=== PATIENT | male | born 1965 | race Caucasian/White ===

== ENCOUNTER 2022-03-10 05:15 | Inpatient (IN) | payer OTHER ==
[2022-03-08 11:31] LABS: BASOPHILS % (AUTO) 0.5 % (0.0-2.0); EOSINOPHILS # (AUTO) 0.1 K/uL (0.0-0.4); EOSINOPHILS % (AUTO) 0.9 % (0.0-4.0); HEMATOCRIT 43.4 % (36-54); LYMPHOCYTES # (AUTO) 2.5 K/uL (1.0-5.5); LYMPHOCYTES % (AUTO) 24.3 % (20.5-51.5); MEAN CORPUSCULAR HEMOGLOBIN 28 pg (27-31); MEAN CORPUSCULAR HGB CONC 35 % (32-36); MEAN CORPUSCULAR VOLUME 82 fL (79.0-98.0); MONOCYTES # (AUTO) 0.8 K/uL (0.0-1.0); MONOCYTES % (AUTO) 7.7 % (1.7-9.3); NEUTROPHILS # (AUTO) 6.9 K/uL (1.8-7.7); NEUTROPHILS % (AUTO) 66.6 % (40.0-70.0); PLATELET COUNT (AUTO) 271 K/uL (130-430); RED BLOOD CELL COUNT(AUTO) 5.31 MIL/uL (4.2-6.2); RED CELL DISTRIBUTION WIDTH 13.1 % (9.0-15.0); WHITE BLOOD COUNT (AUTO) 10.4 K/uL (4.8-10.8)
[2022-03-08 11:42] LABS: BILIRUBIN,URINE NEGATIVE (NEGATIVE); BLOOD, URINE NEGATIVE (NEGATIVE); CLARITY/URINE CLEAR (CLEAR); COLOR,URINE YELLOW (YELLOW); GLUCOSE,URINE NEGATIVE (NEGATIVE); KETONES,URINE NEGATIVE (NEGATIVE); LEUKOCYTE ESTERASE ,URINE NEGATIVE (NEGATIVE); NITRITE, URINE NEGATIVE (NEGATIVE); PROTEIN URINE NEGATIVE (NEGATIVE); UROBILINOGEN,URINE 0.2 (0.2-1.0)
[2022-03-08 12:13] LABS: PROTHROMBIN TIME 9.9 SECS (9.5-12.5)
[2022-03-08 12:31] LABS: CALCIUM 9.1 mg/dL (8.4-11.0); CREATININE 0.97 mg/dL (0.55-1.30)
[~2022-03-10] VITALS: Ht 188 cm; Wt 108.4 kg
[2022-03-10] VITALS (7 sets, daily range): BP systolic 111–130
[2022-03-10] MEDS ORDERED: CEFAZOLIN SOD 2 GM in D5W 50 ML IV ONE (07:15)
[2022-03-10] MEDS ORDERED: BUPIVACAINE LIPOSOME/PF 266 MG/20 ML VIAL INFIL ONE (07:22)
[2022-03-10] MEDS ORDERED: LISI20TA30 PO (07:44)
[2022-03-10] MEDS ORDERED: ACETAMINOPHEN I.V. 1000 MG 100 ML IV ONE (08:07)
[2022-03-10] MEDS ORDERED: MEPERIDINE HCL/PF 25 MG/ML DISP.SYRIN IVP PRN (08:45)
[2022-03-10] MEDS ORDERED: NALOXONE HCL 0.4 MG/ML AMP (NARCAN) IVP PRN ×4 (08:45→11:00)
[2022-03-10] MEDS ORDERED: DIPHENHYDRAMINE INJ 50 MG/ML VIAL IVP PRN (08:45)
[2022-03-10] MEDS ORDERED: ONDANSETRON HCL 4 MG/2 ML VIAL IVP PRN ×2 (08:45→11:45)
[2022-03-10] MEDS ORDERED: LR 1,000 ML IV SCH (08:45)
[2022-03-10] MEDS ORDERED: hydrALAZINE HCL 20 MG/ML VIAL IVP PRN (08:45)
[2022-03-10] MEDS ORDERED: HYDROmorphone 1 MG/ML INJ. CARTRIDGE IVP PRN ×5 (08:45→11:00)
[2022-03-10] MEDS ORDERED: METOCLOPRAMIDE HCL 10 MG/2 ML VIAL IVP PRN ×2 (08:45→11:00)
[2022-03-10] MEDS ORDERED: LABETALOL 100 MG/ 20ML VIAL IVP PRN (08:45)
[2022-03-10] MEDS ORDERED: MIDAZOLAM HCL 2 MG/2 ML VIAL (VERSED) IVP PRN (08:45)
[2022-03-10] MEDS ORDERED: DIPHENHYDRAMINE HCL 25 MG CAPSULE PO PRN (11:00)
[2022-03-10] MEDS ORDERED: traMADol HCL HCL 50 MG TABLET (ULTRAM) PO PRN (11:00)
[2022-03-10] MEDS ORDERED: LORATADINE 10 MG TABLET PO PRN (11:00)
[2022-03-10] MEDS ORDERED: oxyCODONE HCL 5 MG TABLET PO PRN ×2 (11:00)
[2022-03-10] MEDS ORDERED: BISACODYL 10 MG/SUPPOSITORY RC PRN (11:00)
[2022-03-10] MEDS ORDERED: LACTULOSE 20 GM/30 ML UDC PO PRN (11:00)
[2022-03-10] MEDS ORDERED: MORPHINE SULFATE 10MG/10ML PF AMP EP ONE (11:07)
[2022-03-10] MEDS ORDERED: ROCURONIUM BROMIDE 10 MG/ML (ZEMURON) ONE (11:07)
[2022-03-10] MEDS ORDERED: NS IRRIG SOLN 1000 ML IR ONE (11:07)
[2022-03-10] MEDS ORDERED: KETOROLAC TROMETHAMINE 30 MG VIAL ONE (11:07)
[2022-03-10] MEDS ORDERED: LR 1,000 ML IV.SOLN IV ONE (11:07)
[2022-03-10] MEDS ORDERED: PROPOFOL 200MG/ 20ML VIAL (DIPRIVAN) IV ONE (11:07)
[2022-03-10] MEDS ORDERED: DESFLURANE 15 MIN GAS INH ONE (11:07)
[2022-03-10] MEDS ORDERED: VANCOMYCIN HCL 1000 MG/VIAL IV ONE (11:07)
[2022-03-10] MEDS ORDERED: LIDOCAINE 1% 10 MG/ML, 20 ML MDV ONE (11:07)
[2022-03-10] MEDS ORDERED: MIDAZOLAM HCL 5 MG/ML VIAL (VERSED) IV ONE (11:07)
[2022-03-10] MEDS ORDERED: DEXAMETHASONE SOD PHOSPHATE 4 MG/ML VIAL ONE (11:07)
[2022-03-10] MEDS ORDERED: ONDANSETRON HCL 4 MG/2 ML VIAL ONE (11:07)
[2022-03-10] MEDS ORDERED: SUGAMMADEX SODIUM 200 MG/2 ML VIAL IV ONE (11:07)
[2022-03-10] MEDS ORDERED: BUPIVACAINE /PF 0.25% 30 ML VIAL INJ ONE (11:07)
[2022-03-10] MEDS ORDERED: TRANEXAMIC ACID 1,000 MG/10 ML VIAL ONE (11:07)
--- NOTE | 2022-03-10 12:39 | NUR ---
OPENING NOTE Received SBAR from [facility] nurse Esther, pt. is AAOx4 no reports of pain at this time. Foam hip abductor in place and pt. has been oriented to unit, educated on plan of care and pain management regime. Call light is within reach, Maile is at bedside. Pt. is able to tolerate swallowing ice chips with no signs of aspiration, aspiration precautions in place, fall precautions in place, no signs of acute distress.
[2022-03-10] MEDS: ceFAZolin SODIUM 2 GM in D5W 50 ML IV SCH ×2 (14:38→22:17)
--- NOTE | 2022-03-10 17:42 | NUR ---
Physical therapist at bedside, pt. was able to tolerate standing and taking a few steps with 1 out of 10 pain. Pt. educated on activity restrictions, and encouraged to use incentive spirometer. Pt. had a smear of bowel movement, michael care rendered and linens changed. No signs of acute distress.
[2022-03-10] MEDS: ACETAMINOPHEN 500 MG TABLET PO SCH ×2 (18:09→22:15)
[2022-03-10] MEDS: KETOROLAC TROMETHAMINE 10 MG TABLET (TORADOL) PO SCH ×2 (18:10→22:15)
--- NOTE | 2022-03-10 18:15 | NUR ---
P.T. NOTES P.T. EVAL COMPLETED; REFER TO EVAL FOR DETAILS.
--- NOTE | 2022-03-10 19:39 | NUR ---
Closing note Full SBar report given to JOSE Dye, pt. is AAOx4 no reports of pain at this time.
[2022-03-10] MEDS: SENNOSIDES/DOCUSATE SODIUM 1 TAB TABLET(SENOKOT-S) PO SCH (22:14)
[2022-03-11 00:08] VITALS: BP_SYST 105
[2022-03-11] MEDS: KETOROLAC TROMETHAMINE 10 MG TABLET (TORADOL) PO SCH (05:03)
[2022-03-11] MEDS: ceFAZolin SODIUM 2 GM in D5W 50 ML IV SCH (05:04)
[2022-03-11] MEDS: ACETAMINOPHEN 500 MG TABLET PO SCH (05:11)
[2022-03-11 06:58] LABS: BASOPHILS % (AUTO) 0.3 % (0.0-2.0); HEMATOCRIT 34.5 % (36-54); HEMOGLOBIN 12.2 g/dL (14.0-18.0); LYMPHOCYTES # (AUTO) 1.2 K/uL (1.0-5.5); LYMPHOCYTES % (AUTO) 10.2 % (20.5-51.5); MEAN CORPUSCULAR HEMOGLOBIN 29 pg (27-31); MEAN CORPUSCULAR HGB CONC 35 % (32-36); MEAN CORPUSCULAR VOLUME 81 fL (79.0-98.0); MONOCYTES # (AUTO) 0.8 K/uL (0.0-1.0); MONOCYTES % (AUTO) 7.1 % (1.7-9.3); NEUTROPHILS # (AUTO) 9.8 K/uL (1.8-7.7); NEUTROPHILS % (AUTO) 82.4 % (40.0-70.0); PLATELET COUNT (AUTO) 237 K/uL (130-430); RED BLOOD CELL COUNT(AUTO) 4.24 MIL/uL (4.2-6.2); RED CELL DISTRIBUTION WIDTH 12.7 % (9.0-15.0); WHITE BLOOD COUNT (AUTO) 11.8 K/uL (4.8-10.8)
[2022-03-11 07:29] LABS: ALBUMIN 3.2 g/dL (3.4-4.8); CALCIUM 8.4 mg/dL (8.4-11.0); CREATININE 0.93 mg/dL (0.55-1.30); TOTAL BILIRUBIN 0.8 mg/dL (0.0-1.0)
--- NOTE | 2022-03-11 07:35 | NUR ---
Opening Note and Bladder Scan Pt. is AAOx4 no reports of pain at this time, reports that bladder feels full, bladder scan shows >849. Dr. Macias at bedside, stated pt. should attempt to urinate independently and if he is still unable to straight cath pt. Pt. is not to be discharged until he is able to void independently.
[2022-03-11] MEDS ORDERED: SENN-22 PO (07:52)
[2022-03-11] MEDS ORDERED: DEXA4TAB PO (07:57)
[2022-03-11] MEDS ORDERED: CEFA250S32 PO (07:57)
[2022-03-11] MEDS ORDERED: ASA81 PO (07:57)
[2022-03-11] MEDS ORDERED: ACET-2634 PO (07:57)
--- NOTE | 2022-03-11 08:52 | NUR ---
Discharge Planning: DCP faxed pt referral to [facility] for DME, Assisted [phone] for PT. DCP to follow up
[2022-03-11] MEDS ORDERED: DECADRON 4 MG TABLET PO SCH (09:00)
[2022-03-11] MEDS ORDERED: TAMSULOSIN HCL 0.4 MG CAP PO SCH (09:00)
[2022-03-11] MEDS ORDERED: ASPIRIN 81 MG TAB.CHEW PO SCH (09:00)
--- NOTE | 2022-03-11 09:39 | NUR ---
Urinary Retention Pt. was able to void independently after walking with PT using a FWW. Pt. is estimated to have voided more than 700ml.
[2022-03-11 10:44] VITALS: BP_SYST 107
[2022-03-11] MEDS: SENNOSIDES/DOCUSATE SODIUM 1 TAB TABLET(SENOKOT-S) PO SCH (10:48)
[2022-03-11] MEDS ORDERED: CELECOXIB 200 MG CAPSULE PO SCH (11:00)
[2022-03-11 12:39] VITALS: BP_SYST 111
[2022-03-11 14:02] VITALS: BP_SYST 127
--- NOTE | 2022-03-11 15:55 | NUR ---
DISCHARGE NOTE Pt. was sent home with dme of W and bedside commode. Pt. is AAOX4 no reports of pain. Surgical incision is dry and intact, went over instructions of wound care with both the patient and Chen. Reinforced activity restrictions and pt. was able to demonstrate and verbalize his understanding. Went over all discharge instructions include s/s of infection and the post op instructions left by Dr. Macias. Gave the patient tagederms and foam dressing and instructed them on how to prepare the wound for pt. to shower, pt. verbalized his understanding. Iv removed with catheter intact upon removal.
--- NOTE | 2022-03-12 09:51 | NUR ---
Discharge Planning: SELVIN faxed pt referral to [facility] [phone] JAVIER to follow up Addendum: 03/12/22 at 1146 by Carissa Mendoza DP JAVIER followed up with pt referral to [facility] [phone] (formally [facility]) accepted pt. SELVINP called pts and made her aware Chen [phone].
== END 2022-03-11 14:50 | disposition home health service (06) | DRG 470 ==
LOC: UNDOADMIN 05:15 → SMU 05:15
PROVIDERS: ADMIT Student in an Organized Health Care Education/Training Program; ATTEND Student in an Organized Health Care Education/Training Program
PROC: 0SR90JA Replacement of Right Hip Joint with Synthetic Substitute, Uncemented, Open Approach (ICD-10-PCS; principal; 2022-03-10 07:36)
DX: M16.11 Unilateral primary osteoarthritis, right hip (principal); Z20.822 Contact with and (suspected) exposure to COVID-19
CPT/HCPCS: 36415; 71045; 72170-TC; 73501; 80048; 80053; 81003; 85025; 85610-TC; 85730-TC; 87081; 88304; 88311; 96379; 97112-GP; 97116-GP; 97163-GP; 97530-GP; C9290; J0131; J0690; J1100; J1885; J2001; J2250; J2274; J2405; J2704; J3370; J3490; J7060; J7120; J8540; U0003

== ENCOUNTER 2022-05-31 05:10 | Inpatient (IN) | payer OTHER ==
[2022-05-28 08:07] LABS: BASOPHILS % (AUTO) 0.6 % (0.0-2.0); EOSINOPHILS # (AUTO) 0.1 K/uL (0.0-0.4); EOSINOPHILS % (AUTO) 1.7 % (0.0-4.0); HEMATOCRIT 42.9 % (36-54); HEMOGLOBIN 14.6 g/dL (14.0-18.0); LYMPHOCYTES # (AUTO) 2.2 K/uL (1.0-5.5); LYMPHOCYTES % (AUTO) 28.3 % (20.5-51.5); MEAN CORPUSCULAR HEMOGLOBIN 28 pg (27-31); MEAN CORPUSCULAR HGB CONC 34 % (32-36); MEAN CORPUSCULAR VOLUME 82 fL (79.0-98.0); MONOCYTES # (AUTO) 0.6 K/uL (0.0-1.0); MONOCYTES % (AUTO) 8.3 % (1.7-9.3); NEUTROPHILS # (AUTO) 4.7 K/uL (1.8-7.7); NEUTROPHILS % (AUTO) 61.1 % (40.0-70.0); PLATELET COUNT (AUTO) 253 K/uL (130-430); RED BLOOD CELL COUNT(AUTO) 5.26 MIL/uL (4.2-6.2); RED CELL DISTRIBUTION WIDTH 13.8 % (9.0-15.0); WHITE BLOOD COUNT (AUTO) 7.7 K/uL (4.8-10.8)
[2022-05-28 08:24] LABS: INR 0.9 (0.80-1.20); PROTHROMBIN TIME 9.9 SECS (9.5-12.5)
[2022-05-28 08:26] LABS: ALBUMIN 3.9 g/dL (3.4-4.8); CALCIUM 9.1 mg/dL (8.4-11.0); CREATININE 0.82 mg/dL (0.55-1.30); TOTAL BILIRUBIN 0.7 mg/dL (0.0-1.0)
[~2022-05-31] VITALS: Ht 182.9 cm; Wt 109.3 kg
[~2022-05-31 05:10] MED LIST: ACET-2634 PO; ASA81 PO; CEFA250S32 PO; DEXA4TAB PO; LISI20TA30 PO; SENN-22 PO
[2022-05-31] MEDS ORDERED: CEFAZOLIN SOD 2 GM in D5W 50 ML IV ONE (06:30)
[2022-05-31] MEDS ORDERED: METO25TA3 PO (06:40)
[2022-05-31] MEDS ORDERED: LISI1TAB55 PO (06:40)
[2022-05-31] MEDS ORDERED: ACETAMINOPHEN I.V. 1000 MG 100 ML IV ONE (06:57)
[2022-05-31] MEDS ORDERED: NS 1000 ML IV.SOLN IV ONE (07:16)
[2022-05-31] MEDS ORDERED: ROCURONIUM BROMIDE 10 MG/ML (ZEMURON) ONE (07:16)
[2022-05-31] MEDS ORDERED: KETOROLAC TROMETHAMINE 30 MG VIAL ONE (07:16)
[2022-05-31] MEDS ORDERED: LR 1,000 ML IV.SOLN IV ONE (07:16)
[2022-05-31] MEDS ORDERED: DESFLURANE 15 MIN GAS INH ONE (07:16)
[2022-05-31] MEDS ORDERED: SUGAMMADEX SODIUM 200 MG/2 ML VIAL IV ONE (07:16)
[2022-05-31] MEDS ORDERED: LIDOCAINE 1% 10 MG/ML, 20 ML MDV ONE (07:16)
[2022-05-31] MEDS ORDERED: DEXAMETHASONE SOD PHOSPHATE 4 MG/ML VIAL ONE (07:16)
[2022-05-31] MEDS ORDERED: ONDANSETRON HCL 4 MG/2 ML VIAL ONE (07:16)
[2022-05-31] MEDS ORDERED: TRANEXAMIC ACID 1,000 MG/10 ML VIAL ONE (07:16)
[2022-05-31] MEDS ORDERED: MORPHINE SULFATE 10MG/10ML PF AMP ONE (07:16)
[2022-05-31] MEDS ORDERED: VANCOMYCIN HCL 1000 MG/VIAL IV ONE (07:16)
[2022-05-31] MEDS ORDERED: BUPIVACAINE /PF 0.75% 10 ML VIAL INJ ONE (07:16)
[2022-05-31] MEDS ORDERED: LIDOCAINE/EPI MPF 1%1:200000 30 ML VIAL ONE (07:16)
[2022-05-31] MEDS ORDERED: MIDAZOLAM HCL 2 MG/2 ML VIAL (VERSED) ONE (07:16)
[2022-05-31] MEDS ORDERED: PROPOFOL 200MG/ 20ML VIAL (DIPRIVAN) IV ONE (07:16)
[2022-05-31] MEDS ORDERED: NS IRRIG SOLN 1000 ML IR ONE (07:16)
[2022-05-31] MEDS ORDERED: HYDROmorphone 1 MG/ML INJ. CARTRIDGE IVP PRN ×5 (08:45→11:00)
[2022-05-31] MEDS ORDERED: METOCLOPRAMIDE HCL 10 MG/2 ML VIAL IVP PRN ×2 (08:45→10:30)
[2022-05-31] MEDS ORDERED: ONDANSETRON HCL 4 MG/2 ML VIAL IVP PRN ×2 (08:45→11:45)
[2022-05-31] MEDS ORDERED: MEPERIDINE HCL/PF 25 MG/ML DISP.SYRIN IVP PRN (08:45)
[2022-05-31] MEDS ORDERED: DIPHENHYDRAMINE INJ 50 MG/ML VIAL IVP PRN (08:45)
[2022-05-31] MEDS ORDERED: NALOXONE HCL 0.4 MG/ML AMP (NARCAN) IVP PRN ×4 (08:45→10:30)
[2022-05-31] MEDS ORDERED: DIPHENHYDRAMINE HCL 25 MG CAPSULE PO PRN (10:30)
[2022-05-31] MEDS ORDERED: BISACODYL 10 MG/SUPPOSITORY RC PRN (10:30)
[2022-05-31] MEDS ORDERED: LACTULOSE 20 GM/30 ML UDC PO PRN (10:30)
[2022-05-31] MEDS ORDERED: LORATADINE 10 MG TABLET PO PRN (11:00)
[2022-05-31] MEDS ORDERED: traMADol HCL HCL 50 MG TABLET (ULTRAM) PO PRN (11:00)
[2022-05-31] MEDS ORDERED: oxyCODONE HCL 5 MG TABLET PO PRN ×2 (11:00)
[2022-05-31 15:00] VITALS: BP_SYST 110
[2022-05-31] MEDS: ACETAMINOPHEN 500 MG TABLET PO SCH ×2 (15:33→20:01)
[2022-05-31] MEDS: KETOROLAC TROMETHAMINE 10 MG TABLET (TORADOL) PO SCH ×2 (15:34→20:00)
[2022-05-31] MEDS: ceFAZolin SODIUM 2 GM in D5W 50 ML IV SCH ×2 (15:37→20:00)
[2022-05-31] MEDS ORDERED: TAMSULOSIN HCL 0.4 MG CAP PO ONE (16:00)
[2022-05-31] MEDS: LR 1,000 ML IV SCH (18:45)
[2022-05-31] MEDS: SENNOSIDES/DOCUSATE SODIUM 1 TAB TABLET(SENOKOT-S) PO SCH (19:59)
[2022-06-01 00:19] VITALS: BP_SYST 111
[2022-06-01] MEDS: LR 1,000 ML IV SCH (04:45)
[2022-06-01] MEDS: KETOROLAC TROMETHAMINE 10 MG TABLET (TORADOL) PO SCH (05:01)
[2022-06-01] MEDS: ACETAMINOPHEN 500 MG TABLET PO SCH (05:01)
[2022-06-01] MEDS: ceFAZolin SODIUM 2 GM in D5W 50 ML IV SCH (05:02)
[2022-06-01 07:38] LABS: ALBUMIN 3.3 g/dL (3.4-4.8); CALCIUM 8.9 mg/dL (8.4-11.0); CREATININE 0.87 mg/dL (0.55-1.30); TOTAL BILIRUBIN 0.7 mg/dL (0.0-1.0)
[2022-06-01 08:00] VITALS: BP_SYST 137
[2022-06-01] MEDS ORDERED: DEXA4TAB PO (08:06)
[2022-06-01 08:38] LABS: BASOPHILS % (AUTO) 0.2 % (0.0-2.0); EOSINOPHILS % (AUTO) 0.3 % (0.0-4.0); HEMATOCRIT 35.7 % (36-54); LYMPHOCYTES # (AUTO) 1.7 K/uL (1.0-5.5); MEAN CORPUSCULAR HEMOGLOBIN 28 pg (27-31); MEAN CORPUSCULAR HGB CONC 34 % (32-36); MEAN CORPUSCULAR VOLUME 83 fL (79.0-98.0); MONOCYTES # (AUTO) 1.3 K/uL (0.0-1.0); MONOCYTES % (AUTO) 11.5 % (1.7-9.3); NEUTROPHILS # (AUTO) 8.2 K/uL (1.8-7.7); PLATELET COUNT (AUTO) 222 K/uL (130-430); RED CELL DISTRIBUTION WIDTH 13.4 % (9.0-15.0); WHITE BLOOD COUNT (AUTO) 11.2 K/uL (4.8-10.8)
[2022-06-01] MEDS ORDERED: DECADRON 4 MG TABLET PO SCH (09:00)
[2022-06-01] MEDS: SENNOSIDES/DOCUSATE SODIUM 1 TAB TABLET(SENOKOT-S) PO SCH (09:00)
[2022-06-01] MEDS ORDERED: METOPROLOL SUCCINATE 25 MG TAB.SR.24H (TOPROL XL) PO SCH (09:00)
[2022-06-01] MEDS ORDERED: ASPIRIN 81 MG TAB.CHEW PO SCH (09:00)
[2022-06-01] MEDS ORDERED: lisinopriL 20 MG TABLET PO SCH (09:00)
[2022-06-01] MEDS ORDERED: TAMSULOSIN HCL 0.4 MG CAP PO SCH (09:00)
[2022-06-01 10:00] VITALS: BP_SYST 137
[2022-06-01 10:20] VITALS: BP_SYST 137
[2022-06-01] MEDS ORDERED: CEFA250S32 PO (10:36)
[2022-06-01] MEDS ORDERED: CELECOXIB 200 MG CAPSULE PO SCH (11:00)
== END 2022-06-01 15:18 | disposition home or self-care (01) | DRG 470 ==
LOC: SMU 05:10
PROVIDERS: ADMIT Student in an Organized Health Care Education/Training Program; ATTEND Student in an Organized Health Care Education/Training Program
PROC: 0SRB0JZ Replacement of Left Hip Joint with Synthetic Substitute, Open Approach (ICD-10-PCS; principal; 2022-05-31 07:24)
DX: M16.12 Unilateral primary osteoarthritis, left hip (principal); M87.852 Other osteonecrosis, left femur; Z20.822 Contact with and (suspected) exposure to COVID-19
CPT/HCPCS: 36415; 72170-TC; 73502; 80053; 85025; 85610-TC; 85730-TC; 86886; 86900; 86901; 87081; 88304; 88305; 88311; 96379; 97110-GP; 97116-GP; 97530-GP; J0131; J0690; J1100; J1885; J2001; J2274; J2405; J2704; J3370; J3465; J3490; J7030; J7060; J7120; J8540; U0003